=== PATIENT | female | born 1970 | race Caucasian/White ===

== ENCOUNTER → 2025-02-15 | Outpatient (CLI) | payer OTHER ==
[2025-02-19 04:21] LABS: HPVG SOURCE Cervical/Vag
== END | disposition home or self-care (01) ==
LOC: LAB SHORT 15:33 → LAB 15:33
PROVIDERS: Advanced Practice Midwife
DX: Z01.419 Encounter for gynecological examination (general) (routine) without abnormal findings (principal)
CPT/HCPCS: 87624; 87625; G0123; G0145